=== PATIENT | male | born 1995 | race Caucasian/White ===

== ENCOUNTER 2023-11-20 05:08 | Inpatient (IN) | payer OTHER, SELFPAY ==
[2023-11-20] VITALS (12 sets, daily range): BP systolic 102–164; BP diastolic 64–87; PULSE 77–88; O2SAT 97; BMI 27.0; BMI 26.6
--- NOTE | 2023-11-20 03:37 | ED.CVA ---
History of Present Illness
General
Chief Complaint: CVA/TIA Symptoms
Source: patient
Exam Limitations: none
Time Seen by Provider: 11/20/23 03:27
Nursing documentation reviewed up to this point in time: agreed with
Onset of Stroke Symptoms
Onset of symptoms known: Yes
Date of onset of symptoms: 11/20/23
Time of onset of symptoms: 02:00
History of Present Illness
History of Present Illness:
Patient with history of hypertrophic cardiomyopathy and Eliquis, with history of CVA in 2020, presents to ED secondary to sudden onset of difficulty speaking, noted around 2 AM this morning. Patient was still awake at onset of his symptoms.
Patient proceeded to wake up this roommate who brought patient to ED for an evaluation. Denies headache. Denies blurred vision. Denies dizziness. Denies loss of sensation or weakness. Denies difficulty ambulation.
Past History
Past History
ED Past Medical History: Arrthythmia and Other (Hypertrophic cardiomyopathy)
ED Past Surgical History: None
Social History
Tobacco: Non-smoker
Alcohol: None
Drug: None
Personal: Single
Review of Systems
Review of Systems
Allergies reviewed?: Yes
All Other Systems: ROS reviewed and negative except as documented in HPI and ROS
Constitutional: Reports no symptoms
EENT: Reports no symptoms
Respiratory: Reports no symptoms
Cardiac: Reports no symptoms
ABD/GI: Reports no symptoms
: Reports no symptoms
Musculoskeletal: Reports no symptoms
Skin: Reports no symptoms
Neurological: Reports other (Speech difficulty)
Phy Exam
Physical Exam
Physical Exam:
Physical Exam
General: mild distress, not acutely ill. afebrile
Head: nc/at. eomi
Neck: supple. normal range of motion.
Heart: s1/s2 regular rate and rhythm, no murmur. equal radial pulses.
Lungs: no acute respiratory distress. clear bilaterally
Abdomen: normal bowel sounds. not tender.
Neuro: alert and oriented. no focal sensory/motor deficit. slow speech noted, but coherent.
Skin: no rash
Psychiatric: well kept. interactive and cooperative
Extremities: no edema. no calf tenderness.
Course
Orders/Labs/Results
Orders:
Orders
11/20/23 03:27
CT Head W/o Cont STROKE ALERT Urgent
Reason For Exam: aphasia
CT Head/Neck Ang STROKE ALERT Urgent
Reason For Exam: aphasia
11/20/23 03:28
Electrocardiogram (*1) Urgent
Reason for Study: TIA/Stroke
EKG- Treatment ONCE
11/20/23 03:46
Complete Blood Count/No Diff Urgent
Comprehensive Metabolic Panel Urgent
Magnesium Urgent
11/20/23 03:51
Apixaban [Eliquis] 5 mg PO NOW STA
11/20/23 03:53
Apixaban [Eliquis] 5 mg .ROUTE .STK-MED ONE
11/20/23 04:43
Admit/Transfer Patient As Directed
Co-Sign Provider:
Level of Care: Inpatient admission
Assign to:: Telemetry
Physician / Group: Omar
Diagnosis: CVA / TIA
Reason for Telemetry: CVA/TIA
Date to Stop Telemetry: 11/23/23
Time to Stop Telemetry: 11:00
Reason for Hospitalization: CVA / TIA
Expected length of stay greater than two midnights?: Yes
ELOS- Estimated Length of Stay in days: 2
I certify the patient meets the requirements for IP care: Yes
11/20/23 04:44
Code Status As Directed
Resuscitation Status: Full Code
11/20/23 06:06
Acetaminophen [Tylenol] 650 mg PO Q4HPRN PRN
11/20/23 06:06
Case Management Consult ONCE
Case Management Consult: Discharge Planning
NEUROLOGY CONSULT Routine
Consulting Provider: Silvestre Buck
Was physician already notified: Yes
Reason for consult: CVA / TIA
Activity As Directed
Activity Level: Ambulate
With Assistance
EKG with chest pain [ECG as needed] As Directed
ECG as needed for:: Chest Pain
I/O [Intake/ Output] As Directed
Frequency: Per unit guidelines
NIH Stroke Scale As Directed
Neurological Checks As Directed
Frequency: q4h
Orthostatic Vital Signs As Directed
Orthostatic VS Frequency: BID
Vital Signs As Directed
Frequency: Per unit guidelines
Oxygen Therapy [O2 Therapy] [RESP] Routine
Titrate/Wean O2 to maintain O2 sat greater than (%): 94
Ot Eval And Treat Routine
PT Consult [Pt Eval And Treat] Routine
Activity Level: Ambulate
With Assistance
Speech Therapy Eval & Treat Routine
11/20/23 06:19
B12 [Vitamin B12] Routine
Iron Routine
Total Iron Binding Routine
11/20/23 08:00
Apixaban [Eliquis] 5 mg PO BID
Dronedarone [Multaq] 400 mg PO BID
Metoprolol Xl [Toprol Xl] 50 mg PO BID
11/21/23 06:00
EKG [Electrocardiogram (*1)] IN AM
Reason for Study: Chest Pain
Regular
At Your Request: Full Participation
MR Brain Without Contrast IN AM
Comment:
Reason For Exam: CVA / TIA
Recent pill cam endoscopy?: No
11/21/23 06:08
Basic Metabolic Panel IN AM
Complete Blood Count/No Diff IN AM
11/23/23 11:00
DC Protocol for Telemetry ONCE
Abnormal Lab Results
11/20/23
03:46
MPV 10.7 H fL
(7.4-10.4)
Glucose 103 H mg/dl
(70-99)
ALT 58 H U/L
(0-50)
11/20/23 03:46
11/20/23 03:46
Vital Signs
Initial and Last Documented VS:
Initial Vital Signs
Temp Pulse Resp BP Pulse Ox
98.3 F 94 18 131/84 99
11/20/23 03:44 11/20/23 03:44 11/20/23 03:44 11/20/23 03:44 11/20/23 03:44
Last Documented Vital Signs
Temp Pulse Resp BP Pulse Ox
98.2 F 83 19 112/78 97
11/21/23 03:19 11/21/23 03:19 11/21/23 03:19 11/21/23 03:19 11/21/23 03:19
MDM/Problems Addressed
MDM/Problems Addressed:
CT head: No acute findings. Patient with rapid improvement in symptoms during observation.
Spoke with Dr. Buck, neurology. Patient not a candidate for TNK treatment at this time, secondary to low NIH stroke score, as well as rapid improvement in symptoms. Recommends restarting Eliquis at this time only. Patient will be admitted for
further evaluation and treatment.
*EKG
Interpreted by ED Provider?: Yes
EKG Intrepretation Date: 11/20/23
Heart Rate: 90
Rate: normal
Rhythm: sinus
[place]: normal axis
Interval: normal interval
QRS Pattern: normal QRS
Ischemia: non-specific ST changes
*Critical Care Note
Total Time (30-74mins, 75-104mins- exclusive of procedures): Not Applicable
ED Attending Note
-
Portions of this chart may have been created with voice recognition software.� Occasional wrong word or��sound alike� substitutions may have occurred due to the inherent limitations of voice recognition software.
Discharge Plan
Departure
Patient Disposition: Admit
Date of Disposition: 11/20/23
Time of Disposition: 04:00
Admit to: Telemetry
Presentation/result/management discussed w/ accepting MD/DO: Hospitalist
Discharge Problem:
Acute CVA (cerebrovascular accident)
Interventions
Interventions:
*Risk Screen - Suicide Last Done: 11/20/23 03:44
*General Assessment Last Done: 11/20/23 03:44
*Neglect/Abuse Screening Last Done: 11/20/23 03:44
*ED COVID-19 Vaccine History Last Done: 11/20/23 03:44
*Nursing Disposition Last Done: 11/20/23 06:07
ED- Pulmonary Assessment Last Done: 11/20/23 03:49
ED- Neurological Assessment Last Done: 11/20/23 03:49
ED- Cardiac Assessment Last Done: 11/20/23 03:49
ED Swallowing Screen Last Done: 11/20/23 03:58
Discharge Date and Time
Discharge Date/Time: 11/20/23 06:07
[2023-11-20 03:55] LABS: Hematocrit 47.9 % (39.0-52.0); Mean Corp Hgb Conc. 35.5 g/dL (33.0-37.0); Mean Corpuscular Hgb 30.9 pg (27.0-31.0); Mean Corpuscular Volume 86.9 fL (80.0-94.0); Mean Platelet Volume 10.7 fL (7.4-10.4); Platelet Count 233 10^3/uL (130-400); Red Blood Cell Count 5.51 10^6/uL (4.70-6.10); Red Cell Dist. Width 12.5 % (11.5-14.5); White Blood Cell Count 10.5 10^3/uL (4.8-10.8)
[2023-11-20] MEDS: ELIQUIS 5 MG PO ×3 (04:00→20:37)
[2023-11-20 04:26] LABS: ALT (SGPT) 58 U/L (0-50); AST (SGOT) 46 U/L (17-59); Alkaline Phosphatase 57 U/L (38-126); Blood Urea Nitrogen 12 mg/dl (9-20); Calcium 9.6 mg/dl (8.4-10.2); Carbon Dioxide 26 mmol/L (22-30); Chloride 101 mmol/L (98-107); Estimated Creatinine Clearance 123 ml/min; Glucose 103 mg/dl (70-99); Magnesium 1.9 mg/dl (1.6-2.3); Sodium 139 mmol/L (135-145); Total Bilirubin 1.2 mg/dl (0.2-1.3); Total Protein 7.8 g/dl (6.3-8.2); eGFR > 60.00
--- NOTE | 2023-11-20 04:47 | HPS.HSE ---
Family Physician
-
Family Physician: * NONE
Chief Complaint
-
Speech difficulty, numbness
History of Present Illness
Patient is a 27y M with PMH significant for hypertrophic cardiomyopathy, paroxysmal A-Fib and VT and prior CVA who presents to ED complaining of left sided numbness and speech difficulty. History obtained from patient and family at the bedside.
Patient notes that he had some crampy pain in the L calf earlier today that progressed to include his entire LLE from the foot to the hip. He left work early due to this discomfort and his symptoms then improved.
This evening he was seated at his computer when he noted numbness and tingling sensation in the L hand. This was around 2:30 this AM. Similar - though much less severe symptoms - were noted in the LLE. He also describes a sense of 'lightness' or
'floating' x all four extremities. Patient alerted his roommate for help and at this point noted his speech issues. Patient apparently had fluent aphasia with word-salad. No garbled or slurred speech.
He was brought to the ED for further evaluation and treatment.
Patient is now resting comfortably in the ED. He continues to describe a sense of 'fogginess'. His extremity symptoms have fully resolved. He has some persistent speech difficult intermittently - more evident when reciting numbers (as in the
year).
Patient has a prior history of CVA in 2020 which presented as R hemiparesis. He notes some mild residual numbness / weakness on the right since that time.
Patient notes that he ran out of his Eliquis 4 days ago. He has had issues with insurance coverage and has not been able to get this medication.
Patient has most recently been followed at [facility] in regards to his cardiomyopathy and associated arrhythmias. He had previously been followed locally by Dr. Lopez.
Patient had an AICD placed at [facility] in 05/2023. This was reportedly done 'preventatively' and was not due to any inciting event or arrhythmia.
Medical History
Past Medical History
Past Medical History: Reports Other
Additional Past Medical History:
Hypertrophic Cardiomyopathy
Paroxysmal Atrial Fibrillation / Flutter
Ventricular Tachycardia
Prior Embolic CVA
Past Surgical History: Reports Other
Additional Past Surgical History:
Cholecystectomy
AICD Placement (05/2023)
PVI Ablation x 2
Social History
Tobacco: Non-smoker
Alcohol: Occasional
Drug: None
Family History
Family History: Other (MGM: A-Fib, DVT MGF: CVA)
Allergies / Home Medications
Allergies reflects when Allergies were last updated in [email or web address].
Home Medications with original date entered in [email or web address]
Allergy/Medication List:
Allergies
Allergy/AdvReac Type Severity Reaction Status Date / Time
sotalol [Sotalol] Allergy 'ventricular Verified 11/20/23 03:18
contractions'
Home Medications
dronedarone 400 mg tablet (Multaq) 400 mg PO BID Arrhythmia 12/24/20
metoprolol succinate 50 mg tablet,extended release 24 hr 50 mg PO BID Blood pressure 12/24/20
apixaban 5 mg tablet (Eliquis) 5 mg PO BID 30 days #60 tabs 12/27/20
Review of Systems
-
History Source: Patient
A 12 point ROS was completed and negative except as noted: Yes
Constitutional: Denies Fever or Chills
Respiratory: Denies Cough or Trouble Breathing
Cardiac: Denies Chest Pain or Palpitations
Abdomen/GI: Denies Abdominal Pain, Nausea, Vomiting or Diarrhea
: Denies Dysuria or Frequency
Musculoskeletal: Reports Muscle Pain
Neurological: Reports Dizzy, Weakness, Numbness and Other (Aphasia); Denies Headache
Psych: Denies Depression or Anxiety
Physical Exam
Vital Signs
Vital Signs
Temp Pulse Resp BP Pulse Ox
98.3 F 94 18 131/84 99
11/20/23 03:44 11/20/23 03:44 11/20/23 03:44 11/20/23 03:44 11/20/23 03:49
Physical Exam
General: Other (27y M in no acute distress.)
HEENT: Moist mucous membranes and PERRLA
Respiratory: Clear; No Wheezes, Rales or Rhonchi
Cardiac: S1/S2 and Regular Rhythm; No Murmur
GI: Soft, Non Tender, Non Distended and Normal Bowel Sounds
Musculoskeletal: No Clubbing, No Cyanosis and No Edema
Neuro: AO x 3 and Other (Mild R side weakness - chronic / unchanged. Mild stumbling speech / aphasia most notable when reciting numbers.)
Psych: No Anxious or Depressed
Laboratory Results
-
11/20/23 03:46
11/20/23 03:46
Laboratory Results
Total Bilirubin 1.2 mg/dl (0.2-1.3) 11/20/23 03:46
AST 46 U/L (17-59) 11/20/23 03:46
ALT 58 U/L (0-50) H 11/20/23 03:46
Alkaline Phosphatase 57 U/L (38-126) 11/20/23 03:46
Impression/Plan
-
A/P: Patient is a 27y M with PMH significant for PA-Fib, VT, hypertrophic cardiomyopathy and prior CVA who presents to ED complaining of speech difficulty and left-sided numbness.
CVA / TIA
- Admit for further evaluation and treatment.
- Patient with left-sided paresthesias and expressive aphasia / fluent aphasia.
- CT and CTA done in the ED both unremarkable.
- Not especially hypertensive in the ED.
- Significant improvement from initial symptom onset with only minimal residual aphasia.
- Check MRI in AM for further evaluation.
- AICD is MRI compatible per interrogation data. Friend will bring in device card in the AM.
- Neuro evaluation.
- Restart Eliquis - 1st dose given in the ED.
- Follow for changes in exam and new / recurrent symptoms.
- Left sided sensory deficits and expressive aphasia in R-hand dominant individual are somewhat incongruous.
Hypertrophic Cardiomyopathy
Ventricular Tachycardias
Paroxysmal A-Fib
- AICD interrogated in the ED.
- Multiple instances of brief VT > VF - but none significant / prolonged enough to trigger device firing / pacing.
- No report or any data noted to indicate AF or AT - presence or absence.
- Monitor on telemetry.
- Resume Eliquis as noted above.
- Case Management eval for assistance with insurance issues / med coverage.
- Continue usual metoprolol and Multaq.
DVT Prophylaxis: On Eliquis
Code Status: Full
[2023-11-20 08:08] LABS: Iron 73 ug/dl (49-181)
[2023-11-20 08:18] LABS: Percent Saturation 20 % (20-50); Total Iron Binding Capacity 352 ug/dl (261-462)
[2023-11-20 08:41] LABS: Vitamin B12 598 pg/ml (239-931)
--- NOTE | 2023-11-20 08:43 | CON.NEURO ---
Neuro Assessment/Plan
Assessment
IMPRESSIONS/RECOMMENDATIONS:
Abrupt change in left lower extremity followed by left hand sensory change while having discontinued apixaban due to insurance issues and a longstanding history of hypertrophic cardiomyopathy and atrial fibrillation
Most likely etiology is TIA secondary to embolic event
Patient was not a candidate for either intra-arterial thrombectomy or tenecteplase due to low NIH score
Restart apixaban
Will follow MRI of brain results
Order CT of head as a repeated study as the patient is unlikely to undergo MRI due to AICD
There is no indication now for the use of a cholesterol-lowering agent based on the patient's significantly low cholesterol level
Continue metoprolol as planned
Metoclopramide for headache and nausea
Rehabilitation evaluations
Goal of normotension
Goal of normoglycemia
DVT prophylaxis by use of anticoagulant
Provide medical educational material
Will continue to follow pending results. Thank you.
Plan
Restart apixaban
Will follow MRI of brain results
Order CT of head as a repeated study as the patient is unlikely to undergo MRI due to AICD
There is no indication now for the use of a cholesterol-lowering agent based on the patient's significantly low cholesterol level
Continue metoprolol as planned
Metoclopramide for headache and nausea
Rehabilitation evaluations
Goal of normotension
Goal of normoglycemia
DVT prophylaxis by use of anticoagulant
Provide medical educational material
Consultation
Order
Date of Consultation: 11/20/23
Requesting Provider: Hospitalist
Reason for Consult: Aphasia
Subjective/Objective
Subjective Data
Date of Service: November 20, 2023
Adapted from my esteemed colleague's consultation:
DATE/TIME OF CONSULTATION: 12/25/20 at 915
Reason for Consultation: stroke alert
History of Present Illness:
25-year-old male with past medical history of hypertrophic cardiomyopathy in nature fibrillation status post ablation �2 currently off anticoagulation brought in yesterday evening after his mother reported that he was 'acting funny.' He developed a
headache and took 2 aspirin 325 mg doses. (He state that he takes aspirin 325 mg daily as an outpatient and has previously taken Xarelto for his atrial fibrillation prior to ablation.) He states that he was cooking with his mother when his 'legs
were weak and right arm went weak and he fell to the ground.' He denies any loss of consciousness with this event. He states that his mother did not note any convulsive seizure activity with it. He had severe aphasia with the event and says that he
'could not get any words out.' He denies any associated change in vision. He says that on the way to the hospital his speech returned to normal and his left lower extremity weakness improved. In the emergency Department, his NIH stroke scale was
initially 8 with no movement seen in his right arm or leg. Initially alteplase and IAT were considered however upon reassessment his symptoms improved considerably and his NIH went down to a 1 assigned for right upper extremity drift. Alteplase was
not given as this was felt to be nondisabling. CTA did show a distal M2 segment occlusion on the left.
He is followed by Dr. Lopez with cardiology and has had multiple ablations for supraventricular arrhythmia in the past.
Neuro Imaging: CTA head/neck showed a distal M2 occlusion on the L; neck unremarkable; HCT showed no acute finding
Subsequent MRI of brain December 2020 demonstrated: Curvilinear restricted diffusion extending over a 2.2 cm length in the posterior left frontal cortex. Appearance consistent with acute, nonhemorrhagic infarct. No mass effect related to this infarct.
Patient returned to this hospital's emergency department with a series of symptoms including aphasia, left leg cramping pain which expanded to involve the left lower extremity entirely which entirely resolved. At 0230 hrs. on the day of
presentation, yesterday, the patient began experiencing left hand numbness and tingling and then was heard to have speech difficulties. Speech difficulties spontaneously improved without resolution followed by a sense of brain fog.
Of note is that the patient discontinued apixaban 4 days prior to presentation due to insurance coverage for the medication.
Objective Data
Vital Signs
Temp Pulse Resp BP Pulse Ox
36.6 C 83 16 114/72 99
11/20/23 07:06 11/20/23 07:06 11/20/23 07:06 11/20/23 07:06 11/20/23 07:06
Lab Results
11/20/23 03:46
11/20/23 03:46
Sodium 139 mmol/L (135-145) 11/20/23 03:46
Potassium 4.0 mmol/L (3.5-5.1) 11/20/23 03:46
BUN 12 mg/dl (9-20) 11/20/23 03:46
Glucose 103 mg/dl (70-99) H 11/20/23 03:46
Calcium 9.6 mg/dl (8.4-10.2) 11/20/23 03:46
Vitamin B12 598 pg/ml (239-931) 11/20/23 06:19
Patient Allergies
sotalol [Sotalol] Allergy (Verified 11/20/23 03:18)
'ventricular contractions'
Review of Systems
-
History Source: Patient
All other systems: Reviewed and negative
EENT: Eye Pain (on left); Negative Decreased Vision or Swallowing Difficulty
Respiratory: Trouble Breathing
Cardiac: Negative Chest Pain
Abdomen/GI: Negative Incontinence of Stool
Genitourinary: Negative Incontinence
Musculoskeletal: Neck Pain; Negative Back Pain
Neuro: Headache (posterior head at start of symptoms on left), Numbness (right arm) and Speech Problem; Negative Dizzy
Physical Exam
-
General: No Apparent Distress and Appears Stated Age
Eyes: OU Absent Papilledema, Round OU, [place] Conjunctivae and No Ptosis
HEENT: Anicteric and Moist Mucous Membranes
Neck: Full Range of Motion
Respiratory: No Dyspnea
Cardiac: No JVD
GI: Non-distended
Skin: Unremarkable
Extremities: No Clubbing, No Cyanosis and No Edema
Psych: Intact Judgement/Insight
Extended Neurological Exam
Mood & Affect: Mood Unremarkable and Affect Unremarkable
Attention Span & Concentration: Awake, Alert, Interactive and No Difficulty with 2 Step Request
Memory: Unremarkable
Tremor: Hand Tremor Absent and Head Tremor Absent
Involuntary Movement: None
Speech: Quality Unremarkable, Mildly Reduced Output and Other (difficulty with hesitancy)
Cranial Nerve II: Left Eye: Pupillary Reactivity Unremarkable, Pupillary Size Unremarkable and Visual Leon Intact
Cranial Nerve II: Right Eye: Pupillary Reactivity Unremarkable, Pupillary Size Unremarkable and Visual Leon Intact
Cranial Nerves III, IV, : Extraocular Movement: Extraocular Movement Full in all Directions
Cranial Nerve VII: Facial Symmetry: Normal Facial Symmetry
Cranial Nerve VIII: Hearing: Unremarkable Hearing to Normal Conversational Volume
Cranial Nerves IX, X: Palate Movement: Palate Elevation Symmetric
Cranial Nerve XI: Shoulder Shrug: Unremarkable
Cranial Nerve XII: Tongue Protusion: Midline
Muscle Strength, Overall: Full Throughout
Muscle Bulk & Tone: Bulk Unremarkable and Tone Unremarkable
Pronator Drift: No Drift in Upper Extremities
Deep Tendon Reflexes: Trace Throughout
Touch Sensation: Unremarkable
Coordination: Ckbegu-hkcy-dwlspl Testing Unremarkable and Qcwn-Iela-Nspi movements intact bilaterally
Babinski Sign: Absent Bilaterally
Data Reviewed
-
CT-A: Report Reviewed
CT Head: Ordered and Report Reviewed
Labs: Report Reviewed
Lipid Profile: Report Reviewed
Reviewed with: Physician, Patient and Family
Old Records: Summarized
Medications
-
Active Medications
Generic Name Dose Route Start Last Admin
Trade Name Freq PRN Reason Stop Dose Admin
Acetaminophen 650 mg 11/20/23 06:06
Acetaminophen 325 Mg Tablet PO 12/18/23 06:05
Q4HPRN PRN
Mild Pain / Temp > 101
Apixaban 5 mg 05/05/24 08:00
Apixaban (Eliquis) 5 Mg Tablet PO 12/18/23 07:59
BID AVELINO
Dronedarone 400 mg 11/20/23 08:00
Dronedarone (Multaq) 400 Mg Tablet PO 12/18/23 07:59
BID AVELINO
Metoprolol Succinate 50 mg 11/20/23 08:00
Metoprolol 50 Mg Extended Release Tablet PO 12/18/23 07:59
BID AVELINO
Sodium Chloride 0 flush 11/20/23 07:00
Sodium Chloride 0.9% (Flush) Syringe IV 12/18/23 06:59
PER PROTOCOL AVELINO
Home Medications
�Medication �Instructions �Recorded
dronedarone 400 mg tablet (Multaq) 400 mg PO BID Arrhythmia 12/24/20
metoprolol succinate 50 mg 50 mg PO BID Blood pressure 12/24/20
tablet,extended release 24 hr
apixaban 5 mg tablet (Eliquis) 5 mg PO BID 30 days #60 tabs 12/27/20
Past History
Past History
ED Past Medical History: Arrthythmia (Paroxysmal atrial fibrillation), CVA (December 2020, left frontal) and Other (Hypertrophic cardiomyopathy)
ED Past Surgical History: Cardiac (AICD May 2023)
Social History
Tobacco: Non-smoker
Alcohol: None
Drug: None
Personal: Single
[2023-11-20] MEDS: MULTAQ 400 MG PO ×2 (09:10→20:37)
[2023-11-20] MEDS: TOPROL XL 50 MG PO ×2 (09:10→20:37)
[2023-11-20] MEDS: REGLAN 10 MG IV (09:40)
[2023-11-20] MEDS: FLUSH (NSS) 2 FLUSH IV (09:40)
--- NOTE | 2023-11-20 12:04 | W.PN.UPDATE ---
Update Note
Progress Note Update
Nonbillable note
Seen and examined
Patient not having any significant residual paresthesia in left side.
Neurology evaluated, patient have new ICD in place and will require radiology clearance for MRI brain. Patient friend is bringing in ICD card for radiology department to review.
Patient has been resumed back on Eliquis. Unfortunately patient has lost insurance coverage and currently trying to contact [employer] financial assistance program without much luck.
Discussed the issue with case management who stated of able to provide Xarelto 30 day supply and f/u enroll in financial assistance program for xarelto as well. May have to make switch if not able to get eliquis.
Last resort is warfarin and discussed briefly with patient/family as well;
--- NOTE | 2023-11-20 12:52 | CM ---
CM following re: discharge planning.
Reviewed pt's chart, met with pt. pt's mother and pt's room mate at bedside.
Pt is a 27 year old male, admitted with primary dx of CVA / TIA. Pt cannot afford Eliquis due to lost of the insurance and stopped taking Eliquis. Pt's mother stated that pt had Medicaid insurance and was cancelled due to making more money that
required to have an insurance.
Pt reports he lives with room mate in an apartment, has supportive mother. 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 Pt reports he has been working on completing an application with [employer] and has not been successful. Pt
reports he applied for [employer] insurance, has number and he will check tomorrow to whether or not [facility] insurance already in place.
CM provided pt with package of [employer] Financial assistance program for uninsured patient with 30 days free supply for Xarelto if MD will be able to switch from Eliquis to Xarelto. Pt stated he will call to [employer] to confirmed
his eligibility to participate in their financial assistance program.
D/c plan: home when medically stable and coverage for Eliquis/Xarelto confirmed.
CM will follow with discharge plan updates as hospitalization progresses
--- NOTE | 2023-11-20 13:35 | PTOTSP ---
Speech Therapy
Presentations: Patient's speech and language appeared to be WNL. Patient was oriented and able to recall address, phone number, and employment. Per patient's mother, his communication has improved greatly since admission and is close/ at baseline.
Swallowing Function: LAND SURVEYOR ASSISTANT observed patient with several bites of regular consistency solids and sips of thin liquids in which patient appeared to tolerate as he did not exhibit any overt clinical s/sx of aspiration or difficulty with mastication/
manipulation. Patient denied any dysphagia complaints.
Per RN, patient tolerated medications whole with thin liquids.
Recommendations:
1) Regular consistency solids and thin liquids
2) Standard aspiration precautions
3) Medications whole with thin liquids
4) Consideration of cognitive assessment
Plan: LAND SURVEYOR ASSISTANT will continue to follow; pending hospitalization.
[2023-11-21] VITALS (10 sets, daily range): BP systolic 99–122; BP diastolic 64–78; PULSE 73–94; O2SAT 97
[2023-11-21 06:39] LABS: Hematocrit 47.4 % (39.0-52.0); Hemoglobin 16.1 g/dL (13.0-18.0); Mean Corpuscular Hgb 30.4 pg (27.0-31.0); Mean Corpuscular Volume 89.6 fL (80.0-94.0); Mean Platelet Volume 11.1 fL (7.4-10.4); Platelet Count 203 10^3/uL (130-400); Red Blood Cell Count 5.29 10^6/uL (4.70-6.10); Red Cell Dist. Width 12.5 % (11.5-14.5); White Blood Cell Count 8.3 10^3/uL (4.8-10.8)
[2023-11-21 07:03] LABS: Blood Urea Nitrogen 14 mg/dl (9-20); Calcium 9.3 mg/dl (8.4-10.2); Carbon Dioxide 27 mmol/L (22-30); Chloride 104 mmol/L (98-107); Estimated Creatinine Clearance 101 ml/min; Glucose 86 mg/dl (70-99); Potassium 4.9 mmol/L (3.5-5.1); Sodium 138 mmol/L (135-145); eGFR > 60.00
--- NOTE | 2023-11-21 08:25 | W.PN.HOSP.TC ---
Today's Communication/Plan
-
Await brain MRI
Assessment / Plan
Assessment / Plan
HPI: 27y M with PMH significant for PA-Fib, VT, hypertrophic cardiomyopathy and prior CVA who presents to ED complaining of speech difficulty and left-sided numbness.
CVA / TIA
- Patient with left-sided paresthesias and expressive aphasia / fluent aphasia.
- CT and CTA done in the ED both unremarkable.
- Appreciate neurology input, await brain MRI
- Case management has a 1 month free card for patient, will switch from Eliquis to Xarelto 20 mg nightly
- Left sided sensory deficits and expressive aphasia in R-hand dominant individual are somewhat incongruous.
Hypertrophic Cardiomyopathy
Ventricular Tachycardias
Paroxysmal A-Fib
- AICD interrogated in the ED.
- Multiple instances of brief VT > VF - but none significant / prolonged enough to trigger device firing / pacing.
- No report or any data noted to indicate AF or AT - presence or absence.
- Continue usual metoprolol and Multaq. Case management has a 1 month free card for patient, will switch from Eliquis to Xarelto 20 mg nightly
DVT Prophylaxis: On xarelto
Code Status: Full
Total time spent to see the patient on the floor, examine the patient, review data and lab results, discuss treatment plan with patient, nursing staff around 35 minutes.
Physical Exam
General: No acute distress
HEENT: Normocephalic, Atraumatic, EOMI, MMM
Respiratory: Clear to Auscultation bilaterally
Cardiac: Normal S1/S2, Regular Rate and Rhythm
GI: Soft, Nontender, Nondistended, Normal Bowel Sounds
Extremities: No Clubbing, Cyanosis, or Edema
Neuro: Nonfocal/Grossly Intact
Psych: Calm, Cooperative
Derm: No Visible lesions
Anticipated Discharge: Within 24 hours
Subjective/Interval History
-
Date of Service: November 21, 2023
No acute events. No chest pain, shortness of breath, or palpitations. Patient feels back to normal.
Objective Data
-
Labs:
Laboratory Results
11/21/23
06:08
WBC 8.3
Hgb 16.1
Hct 47.4
Plt Count 203
Sodium 138
Potassium 4.9
Chloride 104
Carbon Dioxide 27
BUN 14
Creatinine 1.1
Glucose 86
Calcium 9.3
Vital Signs:
Vital Signs
Temp Pulse Resp BP Pulse Ox
98.2 F 83 19 112/78 97
11/21/23 03:19 11/21/23 03:19 11/21/23 03:19 11/21/23 03:19 11/21/23 03:19
I&O
11/20/23 11/21/23 11/22/23
06:59 06:59 06:59
Intake Total 1320 / 1320
Balance 1320 / 1320
--- NOTE | 2023-11-21 08:44 | W.PN.NEURO.1 ---
Addendum entered and electronically signed by Bryan Marrufo MD 11/21/23 14:16:
Patient not seen as he is going for further testing.
Awaiting brain MRI without contrast
Rivaroxaban has been started, continue this
Original Note:
Documented by User: Mariela Garcia NP 11/21/23 12:20
Today's Communication / Plan
-
.
Neuro Assessment/Plan
Assessment
IMPRESSIONS/RECOMMENDATIONS:
Abrupt change in left lower extremity followed by left hand sensory change while having discontinued apixaban due to insurance issues and a longstanding history of hypertrophic cardiomyopathy and atrial fibrillation
Most likely etiology is TIA or small ischemic stroke secondary to embolic event
Patient was not a candidate for either intra-arterial thrombectomy or tenecteplase due to low NIH score
-CT Head 11/20/23 0830: No acute intracranial abnormality.
-CTA head/neck 11/20/23: Unremarkable CTA of the Neck and Head.
-CT Head 11/20/23 1020: No acute intracranial abnormality or interval change.
Plan
-Continue Eliquis 5mg BID.
-MRI brain noncontrast pending.
-TTE pending.
-Goal normotension.
-Metoclopramide PRN for headache and nausea.
-LDL goal <70. LDL is at goal at 18, no indication to initiate statin therapy at this time.
-Goal normoglycemia, hbA1c is pending.
-NIHSS and neurological checks per unit guidelines.
-Provide patient with a stroke education packet.
-Case management consult to assist with insurance/medication costs.
-PT/OT/ST evaluations.
-DVT prophylaxis by use of anticoagulant.
-Will follow pending results.
Subjective/Objective
Subjective Data
Date of Service: November 21, 2023
No acute events overnight. Patient reports feeling back to his baseline today (RUE 80% strength at baseline since stroke in 2020). He denies any headache, dizziness, speech/swallow difficulty, numbness, nausea, chest pain, palpitations, and
shortness of breath.
Objective Data
Vital Signs
Temp Pulse Resp BP Pulse Ox
98.2 F 83 19 112/78 97
11/21/23 03:19 11/21/23 03:19 11/21/23 03:19 11/21/23 03:19 11/21/23 03:19
Lab Results
11/21/23 06:08
11/21/23 06:08
Sodium 138 mmol/L (135-145) 11/21/23 06:08
Potassium 4.9 mmol/L (3.5-5.1) 11/21/23 06:08
BUN 14 mg/dl (9-20) 11/21/23 06:08
Glucose 86 mg/dl (70-99) 11/21/23 06:08
Calcium 9.3 mg/dl (8.4-10.2) 11/21/23 06:08
Vitamin B12 598 pg/ml (239-931) 11/20/23 06:19
Patient Allergies
sotalol [Sotalol] Allergy (Verified 11/20/23 03:18)
'ventricular contractions'
LDL Level: <70, no statin needed
Review of Systems
-
History Source: Patient
EENT: Blurry Vision (RUQ right eye appears blurry); Negative Decreased Vision or Swallowing Difficulty
Respiratory: Negative Cough or Trouble Breathing
Cardiac: Negative Chest Pain or Palpitations
Abdomen/GI: Negative Nausea
Neuro: Weakness (RUE slightly weak chronically since stroke 2020); Negative Dizzy, Headache, Numbness, Ataxia or Speech Problem
Physical Exam
-
General: Well Developed, Well Nourished and No Apparent Distress
Eyes: No Ptosis and PERRLA
HEENT: Normocephalic and Atraumatic
Neck: Full Range of Motion
Respiratory: No Dyspnea
GI: Non-distended
Skin: Other (BLE dry)
Extremities: No Clubbing, No Cyanosis and No Edema
Psych: Unremarkable
Extended Neurological Exam
Mood & Affect: Mood Unremarkable and Affect Unremarkable
Attention Span & Concentration: Awake, Alert, Interactive and No Difficulty with 2 Step Request
Memory: Unremarkable (AAOx3) and Able to Recall
Tremor: Hand Tremor Absent and Head Tremor Absent
Involuntary Movement: None
Speech: Quality Unremarkable, Quantity Unremarkable and Rate of Production Unremarkable
Cranial Nerve II: Left Eye: Pupillary Reactivity Unremarkable, Pupillary Size Unremarkable and Visual Leon Intact
Cranial Nerve II: Right Eye: Pupillary Reactivity Unremarkable, Pupillary Size Unremarkable and Visual Leon Reduced (RUQ reduced/patient reports it's blurry)
Cranial Nerves III, IV, : Extraocular Movement: Extraocular Movement Full in all Directions
Cranial Nerve V: Facial Sensation: Intact to Light Touch
Cranial Nerve VII: Facial Symmetry: Normal Facial Symmetry
Cranial Nerve VIII: Hearing: Unremarkable Hearing to Normal Conversational Volume
Cranial Nerves IX, X: Palate Movement: Palate Elevation Symmetric
Cranial Nerve XI: Shoulder Shrug: Unremarkable
Cranial Nerve XII: Tongue Protusion: Midline
Muscle Strength, Overall: Full Throughout
Muscle Bulk & Tone: Bulk Unremarkable and Tone Unremarkable
Pronator Drift: No Drift in Upper Extremities and No Drift in Lower Extremities
Deep Tendon Reflexes: Unremarkable Throughout
Cold Sensation: Unremarkable
Vibration Sensation: Unremarkable
Touch Sensation: Double Simultaneous Stimulation Unremarkable
Coordination: [id number] Testing Unremarkable
Babinski Sign: Absent Bilaterally
Gait & Station: Up from Seated Without Problem
Modified Upson Score (MRS)
-
Modified Upson Scale (mRS): No symptoms
Score: 0
Data Reviewed
-
CT-A: Report Reviewed and Image Reviewed
CT Head: Report Reviewed and Image Reviewed
MRI Head: Pending
Echocardiogram: Pending
Labs: Report Reviewed
Lipid Profile: Report Reviewed
HgbA1C: Report Reviewed
Reviewed with: Physician and Patient
Medications
-
Active Medications
Generic Name Dose Route Start Last Admin
Trade Name Freq PRN Reason Stop Dose Admin
Acetaminophen 650 mg 11/20/23 06:06
Acetaminophen 325 Mg Tablet PO 12/18/23 06:05
Q4HPRN PRN
Mild Pain / Temp > 101
Apixaban 5 mg 11/20/23 08:00 11/21/23 09:06
Apixaban (Eliquis) 5 Mg Tablet PO 12/18/23 07:59 5 mg
BID AVELINO Administration
Dronedarone 400 mg 11/20/23 08:00 11/21/23 09:06
Dronedarone (Multaq) 400 Mg Tablet PO 12/18/23 07:59 400 mg
BID AVELINO Administration
Metoclopramide HCl 10 mg 11/20/23 09:28
Metoclopramide 10 Mg/2 Ml Vial IV 12/18/23 09:27
Q6HPRN PRN
headache
Metoprolol Succinate 50 mg 11/20/23 08:00 11/21/23 09:06
Metoprolol 50 Mg Extended Release Tablet PO 12/18/23 07:59 50 mg
BID AVELINO Administration
Sodium Chloride 0 flush 11/20/23 07:00 11/20/23 09:40
Sodium Chloride 0.9% (Flush) Syringe IV 12/18/23 06:59 2 flush
PER PROTOCOL AVELINO Administration
Home Medications
�Medication �Instructions �Recorded
dronedarone 400 mg tablet (Multaq) 400 mg PO BID Arrhythmia 12/24/20
metoprolol succinate 50 mg 50 mg PO BID Blood pressure 12/24/20
tablet,extended release 24 hr
apixaban 5 mg tablet (Eliquis) 5 mg PO BID 30 days #60 tabs 12/27/20
NIH Stroke Score
Subsequent NIH Scale
Date of Subsequent NIH Scale: 11/21/23
Time of Subsequent NIH Scale: 09:15
NIH Stroke Score
Level of Consciousness: 0 - Alert
LOC Questions: 0-Answers both correctly
LOC Commands: 0-Performs both correctly
Best Horizontal Gaze: 0-Normal
Visual Leon: 0=Normal, no visual loss
Facial Palsy: 0=Normal, symmetrical
Motor - Right Arm: 0=No drift 10 seconds
Motor - Left Arm: 0=No drift 10 seconds
Motor - Right Le-No drift 5 seconds
Motor - Left Le-No drift 5 seconds
Limb Ataxia: 0-Absent
Sensation: 0-Normal
Best Language: 0-No aphasia
Dysarthria: 0-Normal
Extinction and Inattention: 0-No abnormality
Total Score:: 0
Modified Joann (mRS) Score
Modified Joann Scale (mRS): No symptoms
Score: 0

Documented by User: Bryan Marrufo MD 11/21/23 14:15
Modified Upson Score (MRS)
-
Score: 0
NIH Stroke Score
NIH Stroke Score
Total Score:: 0
Modified Joann (mRS) Score
Score: 0
[2023-11-21] MEDS: ELIQUIS 5 MG PO (09:06)
[2023-11-21] MEDS: MULTAQ 400 MG PO ×2 (09:06→21:04)
[2023-11-21] MEDS: TOPROL XL 50 MG PO ×2 (09:06→21:03)
--- NOTE | 2023-11-21 09:50 | PTOTSP ---
Pt is independent in all ADLs and functional transfers/mobility with no device. All L sided/speech symptoms have resolved. Pt reports feeling baseline and confident about returning home and returning to work. No skilled OT services warranted.
Will sign off. Pt and RN in agreement. Reconsult if pt's functional status changes.
[2023-11-21 12:27] LABS: TSH Reflex To Free T4 0.77 uIU/ml (0.47-4.68)
[2023-11-21 12:51] LABS: Glycohemoglobin (HgbA1c) 5.7 % (4.0-5.6)
--- NOTE | 2023-11-21 15:54 | CM ---
Reviewed the chart notes and spoke with the patient at the bedside. Patient was previously provided with information for Xarelto coverage under the uninsured program with Xarelto and with a 30 day coupon. Per patient, he is in process for filling
out information on the [employer] for insurance. Per patient, one of his doctors is going to provide a 30 day supply of Elquis until his insurance is active. CM continues to be available to patient/family and is monitoring medical plan for needs at
discharge.
Plan: Discharge to home with no additional needs.
[2023-11-21] MEDS: XARELTO 20 MG PO (17:09)
[2023-11-22 03:26] VITALS: BP 104/62
--- NOTE | 2023-11-22 07:08 | W.PN.HOSP.TC ---
Today's Communication/Plan
-
Await brain MRI
Assessment / Plan
Assessment / Plan
HPI: 27y M with PMH significant for PA-Fib, VT, hypertrophic cardiomyopathy and prior CVA who presents to ED complaining of speech difficulty and left-sided numbness.
CVA / TIA
- Patient with left-sided paresthesias and expressive aphasia / fluent aphasia.
- CT and CTA done in the ED both unremarkable.
- Appreciate neurology input, await brain MRI
- Pt states he is getting eliquis samples from cardiology, will change xarelto back to eliquis
- Left sided sensory deficits and expressive aphasia in R-hand dominant individual are somewhat incongruous.
Hypertrophic Cardiomyopathy
Ventricular Tachycardias
Paroxysmal A-Fib
- AICD interrogated in the ED.
- Multiple instances of brief VT > VF - but none significant / prolonged enough to trigger device firing / pacing.
- No report or any data noted to indicate AF or AT - presence or absence.
- Continue usual metoprolol and Multaq. Pt states he is getting eliquis samples from cardiology, will change xarelto back to eliquis
DVT Prophylaxis: On xarelto
Code Status: Full
Total time spent to see the patient on the floor, examine the patient, review data and lab results, discuss treatment plan with patient, nursing staff around 35 minutes.
Physical Exam
General: No acute distress
HEENT: Normocephalic, Atraumatic, EOMI, MMM
Respiratory: Clear to Auscultation bilaterally
Cardiac: Normal S1/S2, Regular Rate and Rhythm
GI: Soft, Nontender, Nondistended, Normal Bowel Sounds
Extremities: No Clubbing, Cyanosis, or Edema
Neuro: Nonfocal/Grossly Intact
Psych: Calm, Cooperative
Derm: No Visible lesions
Anticipated Discharge: Within 24 hours
Subjective/Interval History
-
Date of Service: November 22, 2023
No acute changes, awaiting brain MRI.
Objective Data
-
Vital Signs:
Vital Signs
Temp Pulse Resp BP Pulse Ox
98.4 F 80 17 104/62 98
11/22/23 03:26 11/22/23 03:26 11/22/23 03:26 11/22/23 03:26 11/22/23 03:26
I&O
11/21/23 11/22/23 11/23/23
06:59 06:59 06:59
Intake Total 1320 / 1320 2200 / 2200
Balance 1320 / 1320 2200 / 2200
[2023-11-22 07:35] VITALS: BP 93/56
[2023-11-22] MEDS: TOPROL XL 50 MG PO (08:24)
[2023-11-22] MEDS: MULTAQ 400 MG PO (08:24)
[2023-11-22 12:02] VITALS: BP 105/60; BP 107/76; BP 108/67; PULSE 70; PULSE 79; PULSE 82
--- NOTE | 2023-11-22 13:20 | CM ---
Reviewed the chart notes. Patient to acquire health insurance from the [place] [employer] ([facility]). CM continues to be available to patient/family and is monitoring medical plan for needs at discharge.
Plan: Discharge to home when medically stable. Per patient, he will receive a months supply of Eliquis from a physician to hold over until insurance is arranged.
[2023-11-22 15:25] VITALS: BP 118/66
--- NOTE | 2023-11-22 17:02 | W.DCSUMMARY ---
Discharge Summary
Discharge Data
Date of Admission: 11/20/23
Date of Discharge: 11/22/23
-
Pending Results: No
Hospital Course
Discharge diagnosis:
Transient ischemic attack
Paroxysmal atrial fibrillation
Hypertrophic cardiomyopathy
Ventricular tachycardia
History of stroke
Consults: Neurology
Brain MRI:
No acute intracranial abnormality noted. Specifically, no acute infarct.
Hospital course:
27-year-old male with a past medical history of hypertrophic cardiomyopathy, ventricular tachycardia, paroxysmal atrial fibrillation, and stroke presented with transient speech difficulties and left-sided numbness. Patient has paroxysmal atrial
fibrillation, he has been unable to take his Eliquis secondary to insurance issues. He was resumed on his Eliquis in the hospital.
Brain MRI was negative for stroke. Suspect he has a transient ischemic attack. His LDL is 18, hemoglobin A1c 5.7.
Patient states that his mother spoke to his pit furnace operator's office. His pit furnace operator office is able to provide him with Eliquis samples. He is medically stable for discharge. He has been instructed to obtain Eliquis samples from his pit furnace operator.
He has also been instructed to complete his paperwork to obtain insurance.
Disposition: Home self-care
Discharge planning required 33 minutes
Discharge Plan
-
Patient Disposition: Home (Routine Discharge)
Discharge Diagnosis/Procedures: Transient ischemic attack, paroxysmal atrial fibrillation, hypertrophic cardiomyopathy, previous stroke
Condition: Good
Diet: Low Fat and Low Cholesterol
Activity Restrictions/Additional Instructions:
You have already received your Eliquis dose tonight.
Please go to cardiology tomorrow morning at 8 AM on 11/23/2023, and pickling tank operator Eliquis.
You need to take it twice a day.
Referrals:
NONE,* [Family Provider] -
Prescriptions:
New
Eliquis 5 mg tablet
5 mg PO BID Qty: 60 0RF
Continued
metoprolol succinate 50 MG tablet extended release 24 hr
50 mg PO BID
Patient Comments:
per pt., family doctor ordered as 150mg daily - but he was instructed by cardiology to take 50mg BID - which is what he was taking up until admission
Multaq 400 MG tablet
400 mg PO BID
Discontinued
Eliquis 5 MG tablet
5 mg PO BID 30 Days Qty: 60 0RF
Rx Instructions:
Start on 12/30/20
Discharge Orders:
Discharge Patient (As Directed); Ordered 11/22/23
Ordered By: Jonnathan Chand
Discharge Date and Time
Discharge Date/Time: 11/22/23 17:31
Print Language: UGANDAN
[2023-11-22] MEDS: ELIQUIS 5 MG PO (17:06)
== END 2023-11-22 17:31 | disposition home or self-care (01) | DRG 69 ==
LOC: 2 NORTH 05:08
PROVIDERS: ADMITTING PHYSICIAN Hospitalist; ATTENDING PHYSICIAN Family Medicine; CONSULT PHYSICIAN Psychiatry & Neurology Neurology; EMERGENCY PHYSICIAN Emergency Medicine
DX: G45.9 Transient cerebral ischemic attack, unspecified (principal); I42.2 Other hypertrophic cardiomyopathy; I47.20 Ventricular tachycardia, unspecified; I69.351 Hemiplegia and hemiparesis following cerebral infarction affecting right dominant side; Z79.01 Long term (current) use of anticoagulants; I48.0 Paroxysmal atrial fibrillation
CPT/HCPCS: 70450; 70496; 70498; 70551; 71045; 80048; 80053; 82607; 83036; 83540; 83550; 83735; 84443; 85027; 92610; 93005; 93306; 96374; 97161; 97165; 99285; Q9950; Q9967